=== PATIENT | female | born 1985 | race Two or more races ===

== ENCOUNTER 2021-01-13 01:22 | Emergency (ER) | payer MEDICAID, OTHER ==
[~2021-01-13] VITALS: Ht 157.5 cm; Wt 77.1 kg
[2021-01-13 03:01] LABS: Urine Bacteria FEW /hpf (None Seen); Urine Blood 3+ /uL (Negative); Urine Hyaline Cast FEW /lpf (0 - 2); Urine Specific Gravity 1.003 (1.001-1.035); Urine WBC 114 /hpf (0 - 5); Urine WBC Clumps PRESENT /hpf (None Seen)
[2021-01-13] MEDS ORDERED: KETOROLAC TROMETH 60MG/2ML VIAL IM ONE (05:15)
[2021-01-13 06:24] VITALS: BP 121/74
[2021-01-13] MEDS ORDERED: cefTRIAXone SOD 1,000 MG VL IM ONE (06:30)
== END 2021-01-13 07:18 | disposition home or self-care (01) ==
LOC: ER 01:22
DX: N39.0 Urinary tract infection, site not specified (principal)
CPT/HCPCS: 81001; 96372; 99284; J0696; J1885